=== PATIENT | female | born 1995 | race Caucasian/White ===

== ENCOUNTER 2018-09-19 21:08 | Emergency (ER) | payer SELFPAY ==
[~2018-09-19] VITALS: Ht 167.6 cm; Wt 49.9 kg
--- NOTE | 2018-09-19 22:00 | NUR ---
ALESSANDRA FROM [employer], PER RA, PT ASKED BYSTANDER TO CALL 911 PT UNCOOPERATIVE ANSWERING QUESTIONS. -PAIN, -SI, -HI, -HALLUCINATIONS. PT ANXIOUS & PARANOID. DENIES CP, SOB, DIZZINESS, N/V AT THIS TIME. DENIES TAKING ANY DRUGS OR ALCOHOL. PT SEEN & EVAL'D BY RONA MASON & WILL CONT TO MONITOR.
--- NOTE | 2018-09-19 23:08 | NUR ---
BLOOD COLLECTED AND SENT TO LAB
[2018-09-19 23:10] LABS: APPEARANCE,URINE Cloudy (CLEAR); BILIRUBIN,URINE MODERATE (NEGATIVE); BLOOD, URINE Trace-intact Ery/uL (NEGATIVE); COLOR,URINE Yellow (YELLOW); KETONES,URINE >=160 (NEGATIVE); LEUKOCYTE ESTERASE ,URINE Small (NEGATIVE); NITRITE, URINE Negative (NEGATIVE); PROTEIN,URINE 30 mg/dl (NEGATIVE); UGLUCOSE Negative (NEGATIVE); UROBILINOGEN,URINE 0.2 EU/dL (0.2)
[2018-09-19 23:15] LABS: BASOPHILS # (AUTO) 0.1 /CMM (0.0-0.2); BASOPHILS % (AUTO) 0.7 % (0.0-2.0); HEMATOCRIT 49 % (33-45); HEMOGLOBIN 16.4 g/dL (11.5-14.8); LYMPHOCYTES # (AUTO) 1.8 /CMM (0.8-4.8); MEAN CORPUSCULAR HGB CONC 33 g/dl (31.0-36.0); MEAN CORPUSCULAR VOLUME 93 fL (82-100); MONOCYTES # (AUTO) 0.9 /CMM (0.1-1.30); MONOCYTES % (AUTO) 6.5 % (2.0-12.0); NEUTROPHILS # (AUTO) 11.4 /CMM (1.8-8.9); NEUTROPHILS % (AUTO) 79.8 % (43.0-81.0); PLATELET COUNT (AUTO) 332 /CMM (150-450); RED BLOOD CELL COUNT(AUTO) 5.34 MIL/uL (4.0-5.2); WHITE BLOOD COUNT (AUTO) 14.2 K/uL (4.3-11.0)
[2018-09-19 23:29] LABS: CALCIUM, SERUM 9.8 mg/dL (8.5-10.1); CARBON DIOXIDE 21 mmol/L (21-32); CHLORIDE 99 mmol/L (98-107); CREATININE 1.2 mg/dL (0.6-1.3); GLUCOSE 99 mg/dL (74-106); POTASSIUM 4.3 mmol/L (3.5-5.1); SODIUM SERUM 137 mmol/L (136-145); UREA NITROGEN, BLOOD 20 mg/dL (7-18)
[2018-09-19 23:35] LABS: ACETAMINOPHEN 0 ug/ml (10-30); ALANINE AMINOTRANSFERASE 22 U/L (12-78); ALBUMIN 4.8 g/dL (3.4-5.0); ALCOHOL, BLOOD < 3 mg/dL (0-0); ALKALINE PHOSPHATASE 67 U/L (46-116); ASPARTATE AMINOTRANSFERASE 18 U/L (15-37); BILIRUBIN,DIRECT 0.1 mg/dL (0.0-0.2); BILIRUBIN,TOTAL 0.8 mg/dL (0.2-1.0); SALICYLATE 1.4 mg/dL (2.8-20.0); TOTAL PROTEIN, SERUM 9.5 g/dL (6.4-8.2)
[2018-09-19 23:55] LABS: BACTERIA,URINE Few /HPF (None Seen); MUCUS,URINE Few /LPF (None Seen); SQUAMOUS EPITHELIAL CELL,UR Few /HPF (None Seen)
[2018-09-20] MEDS ORDERED: OLANZAPINE 10 MG VIAL IM ONE ×2 (00:29→00:30)
--- NOTE | 2018-09-20 01:19 | NUR ---
PT RESTING COMFORTABLY IN BED. VSS. NO ACUTE DISTRESS NOTED AT THIS TIME. WILL CONTINUE TO MONITOR
--- NOTE | 2018-09-20 02:38 | NUR ---
pt states that she lives in [place]. Denies any SI or HI. 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
[2018-09-20] MEDS ORDERED: LORAZEPAM INJ 2 MG/ML VIAL IM ONE (03:00)
[2018-09-20] MEDS ORDERED: LORAZEPAM INJ 2 MG/ML VIAL ONE (03:00)
--- NOTE | 2018-09-20 04:36 | NUR ---
Patient is resting comfortably in bed with eyes closed. Easily aroused. VSS
--- NOTE | 2018-09-20 06:17 | NUR ---
Patient is resting comfortably in bed with eyes closed. Easily aroused. VSS
--- NOTE | 2018-09-20 09:00 | NUR ---
PATIENT A/OX4, VERBALLY RESPONSIVE, AMBULATES INDEPENDENTLY, REFUSED FOOD. PATIENT BACK TO BASELINE MENTATION. DENIES PAIN OR DISCOMFORT AT THIS TIME. Patient discharged to home in stable condition. Written and verbal after care instructions given. Patient verbalizes understanding of instruction.
[2018-09-20 10:02] VITALS: BP 118/78
== END 2018-09-20 10:03 | disposition home or self-care (01) ==
LOC: ER 21:11
DX: F19.10 Other psychoactive substance abuse, uncomplicated (principal); N39.0 Urinary tract infection, site not specified; R41.82 Altered mental status, unspecified; R00.0 Tachycardia, unspecified; F15.10 Other stimulant abuse, uncomplicated; F13.10 Sedative, hypnotic or anxiolytic abuse, uncomplicated
CPT/HCPCS: 36415; 80048; 80076; 80307; 80329; 81001; 84703; 85025; 87086; 96372 ×2; 99283; J2060; J3490; 80305; 81000-TC; G0480